=== PATIENT | female | born 1975 | race Caucasian/White ===

== ENCOUNTER 2021-02-06 15:24 | Emergency (ER) | payer BC, OTHER, SELFPAY ==
--- NOTE | ~2021-02-06 | XR_ITS ---
EXAMINATION: XR hip LT min 2V DATE: 02/06/2021 15:48 INDICATION: Left hip pain. TECHNIQUE: 3 views of left hip were obtained. COMPARISON: None. FINDINGS: Bone alignment is normal. No fracture. There is mild left hip osteoarthritis. IMPRESSION: 1. Mild left hip osteoarthritis. Reviewed, dictated and finalized at location A.
[2021-02-06 15:30] VITALS: BP 113/56; PULSE 90; RESP 16; TEMP 36.6; O2SAT 98
--- NOTE | 2021-02-06 15:34 | ED.GENADULT ---
HPI - General Adult General Chief complaint: Extremity Injury, Lower Stated complaint: left hip pain History of Present Illness HPI narrative: This a 45-year-old female comes in complaining of left hip pain that goes down her leg states that it has been going on for couple of days. Patient denies having any falls except for proximal about 1 month ago she had some falls but did not have pain Related Data Home Medications Medication Instructions Recorded Confirmed chlorzoxazone 02/06/21 hydrocodone-acetaminophen tablet 02/06/21 lisinopril 10 mg PO DAILY 02/06/21 02/06/21 quetiapine 02/06/21 venlafaxine mg PO 02/06/21 Allergies Allergy/AdvReac Type Severity Reaction Status Date / Time erythromycin base Allergy Mild Unknown Verified 02/06/21 15:36 Review of Systems Review of Systems: Narrative: CONSTITUTIONAL: Denies fever, chills, or sweats. EYES: Denies visual changes, redness, or discharge. ENT: Denies rhinorrhea, congestion, sore throat, or otalgia. CARDIOVASCULAR:Denies chest pain, palpitations, or edema. RESPIRATORY: Denies cough or dyspnea. GASTROINTESTINAL: Denies abdominal pain, nausea, vomiting, or diarrhea. GENITOURINARY: Denies dysuria or hematuria. SKIN:[Denies rash or itching. MUSCULOSKELETAL:Denies back pain, joint pain, or myalgia. Left hip pain NEUROLOGIC: Denies headache, numbness, or weakness. PSYCHIATRIC:Denies anxiety or depression PMFSH Comments At time as signature, I have reviewed and agree with nursing past medical, social, surgical and family history. Please see nursing chart for further information. There is no relevant family history pertinent to the presenting complaint. Exam Narrative: Exam Narrative: GENERAL:Well-appearing, well-nourished, and in no acute distress. HEAD:Normocephalic, atraumatic. EYES: PERRLA and EOMI. ENT: Nares clear, no rhinorrhea or epistaxis. Mucous membranes moist. NECK: Supple. CHEST: Clear to auscultation. No respiratory distress. HEART: Regular rate and rhythm. No murmur heard. Normal peripheral pulses. ABDOMEN: Soft, nontender, nondistended, normal active bowel sounds. EXTREMITIES: Normal range of motion. No edema. Patient able to ambulate without any difficulties SKIN: Warm, dry, no rash. NEURO: No focal deficits. Alert and oriented x3. Course [employer]PER[employer]OR/PA Physician Supervision no x-ray reviewed no fractures noted Vital Signs Vital signs: Vital Signs Temperature 98 F 02/06/21 15:30 Pulse Rate 90 02/06/21 15:30 Respiratory Rate 16 02/06/21 15:30 Blood Pressure 113/56 L 02/06/21 15:30 Pulse Oximetry 98 02/06/21 15:30 Temperature 98 F 02/06/21 15:30 Pulse Rate 90 02/06/21 15:30 Respiratory Rate 16 02/06/21 15:30 Blood Pressure 113/56 L 02/06/21 15:30 Pulse Oximetry 98 02/06/21 15:30 Medical Decision Making Vital Signs Vital Signs: Vital Signs Temperature 98 F 02/06/21 15:30 Pulse Rate 90 02/06/21 15:30 Respiratory Rate 16 02/06/21 15:30 Blood Pressure 113/56 L 02/06/21 15:30 Pulse Oximetry 98 02/06/21 15:30 Temperature 98 F 02/06/21 15:30 Pulse Rate 90 02/06/21 15:30 Respiratory Rate 16 02/06/21 15:30 Blood Pressure 113/56 L 02/06/21 15:30 Pulse Oximetry 98 02/06/21 15:30 Discharge Plan Discharge Clinical Impression: Sciatic leg pain Patient Disposition: Home, Self-Care Condition: Stable Instructions: Antibiotic Form, Sciatica (ED), Lower Back Exercises (ED) Additional Instructions: Back pain ice and heat to the area for 20-30 minutes Gentle stretching exercises, Caution with lifting, bending, stooping, twisting Avoid pushing, pulling Take muscle relaxants as directed--caution drowsiness and no driving or alcohol Anti-inflammatory medicine as directed--take with food May take the muscle relaxant and anti-inflammatory at the same time Follow-up with your PCP if not improving in 5-7 days Prescriptions: New methylprednisolone [Medrol (Ted)]
== END 2021-02-06 16:09 | disposition home or self-care (01) ==
PROVIDERS: Emergency Provider Nurse Practitioner Family; PCP Internal Medicine
DX: M54.32 Sciatica, left side (principal); I10 Essential (primary) hypertension
CPT/HCPCS: 73502; 99203; G0463